=== PATIENT | female | born 1995 | race Caucasian/White ===

== ENCOUNTER 2017-06-26 11:04 | Emergency (ER) | payer BC ==
[~2017-06-26] VITALS: Ht 162.6 cm; Wt 75.5 kg
[2017-06-26] MEDS ORDERED: SODIUM CHLORIDE FLUSH 10ML SYR IVF ONE (11:30)
[2017-06-26] MEDS ORDERED: KETOROLAC 30 MG/1 ML ONE (11:51)
[2017-06-26] MEDS ORDERED: METHOCARBAMOL 750 MG TABLET ONE (11:51)
[2017-06-26 11:59] LABS: MICROSCOPIC INDICATED
[2017-06-26] MEDS ORDERED: KETOROLAC 30 MG/1 ML IVPush ONE (12:00)
[2017-06-26] MEDS ORDERED: METHOCARBAMOL 750 MG TABLET PO ONE (12:00)
[2017-06-26 12:17] LABS: BASOPHILS # (AUTO) 0.04 x10^3/uL (0-0.3); BASOPHILS % (AUTO) 0 % (0-1); EOSINOPHILS # (AUTO) 0.06 x10^3/uL (0-0.8); EOSINOPHILS % (AUTO) 1 % (1-7); LYMPHOCYTES # (AUTO) 1.33 x10^3/uL (1-6.1); LYMPHOCYTES % (AUTO) 12 % (22-44); MD NO; MEAN CORPUSCULAR HEMOGLOBIN 30.6 pg (27.0-34.8); MEAN CORPUSCULAR VOLUME 90.2 fL (80-100); MEAN PLATELET VOLUME 8.5 fL (7.4-10.4); MONOCYTES # (AUTO) 0.29 x10^3/uL (0-1.4); MONOCYTES % (AUTO) 3 % (2-9); NEUTROPHILS # (AUTO) 9.82 x10^3/uL (1.8-8.0); NEUTROPHILS % (AUTO) 85 % (42-75); PLATELET COUNT 364 x10^3/uL (130-400); RED BLOOD COUNT 4.99 x10^6/uL (3.82-5.3); RED CELL DISTRIBUTION WIDTH 12.2 % (9.6-15.2)
[2017-06-26 12:27] LABS: CHLORIDE 105 mmol/L (98-107)
[2017-06-26 12:37] LABS: ALBUMIN 4.2 g/dL (3.4-5.0); ANION GAP 7 mmol/L (5-15); CALCIUM 9.4 mg/dL (8.5-10.1); CREATININE 0.88 mg/dL (0.55-1.02)
[2017-06-26 12:45] LABS: CULTURE INDICATED? YES
[2017-06-26 15:04] VITALS: BP 108/60
== END 2017-06-26 15:06 | disposition home or self-care (01) ==
LOC: ED 13:45
DX: N20.2 Calculus of kidney with calculus of ureter (principal); R31.9 Hematuria, unspecified
CPT/HCPCS: 36415; 74176; 80048; 81001; 82040; 84703; 85025; 87086; 96374; 99285; J1885